=== PATIENT | female | born 1985 | race Caucasian/White ===

== ENCOUNTER 2019-05-06 18:30 | Emergency (ER) | payer OTHER ==
[~2019-05-06] VITALS: Ht 157.5 cm; Wt 79.4 kg
[2019-05-06 18:40] VITALS: BP 156/87
[2019-05-06] MEDS ORDERED: IV NORMAL SALINE 1000ML BAG 1,000 ML IV ONE (19:00)
[2019-05-06 19:20] LABS: BARBITURATES NEG (NEG); BENZODIAZEPINES NEG (NEG); CANNABINOIDS NEG (NEG); COCAINE NEG (NEG); METHADONE NEG (NEG); OPIATES NEG (NEG); PHENCYCLIDINE NEG (NEG)
[2019-05-06 19:23] LABS: AMPHETAMINE/METHAMPHETAMINE NEG (NEG)
[2019-05-06 19:29] LABS: BASO # 0.1 x10^3/uL (0.0-0.2); BASO % 2 % (0-3); EOS # 0.2 x10^3/uL (0.0-0.7); EOS % 4 % (0-3); HEMATOCRIT 38.6 % (36.0-47.0); HEMOGLOBIN 13.3 g/dL (12.0-15.5); LYMPH # 1.3 x10^3/uL (1.0-4.8); LYMPH % 29 % (24-48); MEAN CORPUSCULAR HEMOGLOBIN 34 pg (25-35); MEAN CORPUSCULAR HGB CONC 34 g/dL (31-37); MEAN CORPUSCULAR VOLUME 99 fL (79-100); MONO # 0.4 x10^3/uL (0.0-1.1); MONO % 9 % (0-9); NEUT # 2.7 x10^3uL (1.8-7.7); NEUT % 56 % (31-73); PLATELET COUNT 250 x10^3/uL (140-400); RED BLOOD COUNT 3.91 x10^6/uL (3.50-5.40); RED CELL DISTRIBUTION WIDTH 12.4 % (11.5-14.5); WHITE BLOOD COUNT 4.7 x10^3/uL (4.0-11.0)
[2019-05-06] MEDS ORDERED: KETOROLAC 30 MG/ML VIAL. IV ONE (19:30)
[2019-05-06] MEDS ORDERED: diphenhydrAMINE HCL 25 MG CAPSULE PO ONE (19:30)
[2019-05-06] MEDS ORDERED: PROCHLORPERAZINE 10 MG/2 ML VIAL. IV ONE (19:30)
[2019-05-06] MEDS ORDERED: methylPREDNISolone SOD SUCC PF 125 MG/2 ML VIAL. IV ONE (19:30)
[2019-05-06 19:39] LABS: CALCIUM 8.9 mg/dL (8.5-10.1); CREATININE 0.8 mg/dL (0.6-1.0); GFR 83.1; POTASSIUM 3.5 mmol/L (3.5-5.1)
[2019-05-06 19:45] LABS: ALBUMIN 4.3 g/dL (3.4-5.0); ALBUMIN/GLOBULIN RATIO 1.3 (1.0-1.7); TOTAL BILIRUBIN 0.4 mg/dL (0.2-1.0); TOTAL PROTEIN 7.5 g/dL (6.4-8.2)
--- NOTE | 2019-05-06 19:59 | PHYS DOC ---
Past Medical History Past Medical History: Anxiety, Hypertension (KALPESH NAPIER APRN) Past Surgical History: No Surgical History (KALPESH NAPIER APRN) Alcohol Use: None Drug Use: None (KALPESH NAPIER APRN) Adult General Chief Complaint Chief Complaint: HEADACHE HPI HPI Patient is a 34 year old female with history of hypertension, anxiety, smoking, migraine headaches who presents to the ED today complaining of a 7 out of 10 frontal migraine headache described as throbbing and intermittent since as they. Patient is also complaining of photosensitivity and nausea. Denies any vomiting. She states she feels her heart is racing. Denies any drug use. She states she is a smoker. She states she has tried Imitrex from a family member with some relief of her headache. (KALPESH NAPIER APRN) Review of Systems Review of Systems Constitutional: Denies fever or chills [] Eyes: Denies change in visual acuity, redness, or eye pain [] HENT: Denies nasal congestion or sore throat [] Respiratory: Denies cough or shortness of breath [] Cardiovascular: Reports her heart racing GI: Denies abdominal pain, nausea, vomiting, bloody stools or diarrhea [] : Denies dysuria or hematuria [] Musculoskeletal: Denies back pain or joint pain [] Integument: Denies rash or skin lesions [] Neurologic: Reports migraine headache, denies focal weakness or sensory changes [] All other systems were reviewed and found to be within normal limits, except as documented in this note. (KALPESH NAPIER APRN) Current Medications Current Medications Current Medications Medications (Trade) Dose Ordered Sig/Khai Start Time Stop Time Status Last Admin Dose Admin Diphenhydramine HCl (Benadryl) 25 mg 1X ONCE 05/06/19 19:30 05/06/19 19:31 DC 05/06/19 19:19 25 MG Ketorolac Tromethamine (Toradol 30mg Vial) 30 mg 1X ONCE 05/06/19 19:30 05/06/19 19:31 DC 05/06/19 19:18 30 MG Methylprednisolone Sodium Succinate (SOLU-Medrol 125MG VIAL) 125 mg 1X ONCE 05/06/19 19:30 05/06/19 19:31 DC 05/06/19 19:18 125 MG Prochlorperazine Edisylate (Compazine) 10 mg 1X ONCE 05/06/19 19:30 05/06/19 19:31 DC 05/06/19 19:18 10 MG Sodium Chloride 1,000 ml @ 1,000 mls/hr 1X ONCE 05/06/19 19:00 05/06/19 19:59 DC 05/06/19 19:19 1,000 MLS/HR (JAIMIE WEBSTER MD) Allergies Allergies Allergies Coded Allergies Type Severity Reaction Last Updated Verified No Known Drug Allergies 05/06/19 No (JAIMIE WEBSTER MD) Physical Exam Physical Exam Constitutional: Well developed, well nourished, no acute distress, non-toxic appearance. [] HENT: Normocephalic, atraumatic, bilateral external ears normal, oropharynx nabila st, no oral exudates, nose normal. [] Eyes: PERRLA, EOMI, conjunctiva normal, no discharge. [] Neck: Normal range of motion, no tenderness, supple, no stridor. [] Cardiovascular:Heart rate regular rhythm, no murmur [] Lungs & Thorax: Bilateral breath sounds clear to auscultation [] Abdomen: Bowel sounds normal, soft, no tenderness, no masses, no pulsatile masses. [] Skin: Warm, dry, no erythema, no rash. [] Back: No tenderness, no CVA tenderness. [] Extremities: No tenderness, no cyanosis, no clubbing, ROM intact, no edema. [] Neurologic: Alert and oriented X 3, normal motor function, normal sensory function, no focal deficits noted. Cranial nerves II through XII intact Psychologic: Affect normal, judgement normal, mood normal. [] (KALPESH NAPIER APRN) Current Patient Data Vital Signs Vital Signs Date Time Temp Pulse Resp B/P (MAP) Pulse Ox O2 Delivery O2 Flow Rate FiO2 05/06/19 18:40 98.6 113 16 156/87 (110) 97 Room Air 98.6 (JAIMIE WEBSTER MD) Lab Values Laboratory Tests Test 05/06/19 19:00 05/06/19 19:06 05/06/19 19:20 Urine Opiates Screen Neg (NEG) Urine Methadone Screen Neg (NEG) Urine Barbiturates Neg (NEG) Urine Phencyclidine Screen Neg (NEG) Urine Amphetamine/Methamphetamine Neg (NEG) Urine Benzodiazepines Screen Neg (NEG) Urine Cocaine Screen Neg (NEG) Urine Cannabinoids Screen Neg (NEG) Urine Ethyl Alcohol Pos (NEG) POC Urine HCG, Qualitative Hcg negative (Negative) White Blood Count 4.7 x10^3/uL (4.0-11.0) Red Blood Count 3.91 x10^6/uL (3.50-5.40) Hemoglobin 13.3 g/dL (12.0-15.5) Hematocrit 38.6 % (36.0-47.0) Mean Corpuscular Volume 99 fL (79-100) Mean Corpuscular Hemoglobin 34 pg (25-35) Mean Corpuscular Hemoglobin Concent 34 g/dL (31-37) Red Cell Distribution Width 12.4 % (11.5-14.5) Platelet Count 250 x10^3/uL (140-400) Neutrophils (%) (Auto) 56 % (31-73) Lymphocytes (%) (Auto) 29 % (24-48) Monocytes (%) (Auto) 9 % (0-9) Eosinophils (%) (Auto) 4 % (0-3) H Basophils (%) (Auto) 2 % (0-3) Neutrophils # (Auto) 2.7 x10^3uL (1.8-7.7) Lymphocytes # (Auto) 1.3 x10^3/uL (1.0-4.8) Monocytes # (Auto) 0.4 x10^3/uL (0.0-1.1) Eosinophils # (Auto) 0.2 x10^3/uL (0.0-0.7) Basophils # (Auto) 0.1 x10^3/uL (0.0-0.2) Sodium Level 136 mmol/L (136-145) Potassium Level 3.5 mmol/L (3.5-5.1) Chloride Level 98 mmol/L (98-107) Carbon Dioxide Level 25 mmol/L (21-32) Anion Gap 13 (6-14) Blood Urea Nitrogen 6 mg/dL (7-20) L Creatinine 0.8 mg/dL (0.6-1.0) Estimated GFR (Cockcroft-Gault) 83.1 BUN/Creatinine Ratio 8 (6-20) Glucose Level 126 mg/dL (70-99) H Calcium Level 8.9 mg/dL (8.5-10.1) Total Bilirubin 0.4 mg/dL (0.2-1.0) Aspartate Amino Transferase (AST) 42 U/L (15-37) H Alanine Aminotransferase (ALT) 53 U/L (14-59) Alkaline Phosphatase 53 U/L (46-116) Total Protein 7.5 g/dL (6.4-8.2) Albumin 4.3 g/dL (3.4-5.0) Albumin/Globulin Ratio 1.3 (1.0-1.7) Ethyl Alcohol Level 115 mg/dL (0-10) H Laboratory Tests 05/06/19 19:20 Laboratory Tests 05/06/19 19:20 (JAIMIE WEBSTER MD) EKG EKG [] (KALPESH NAPIER APRN) Radiology/Procedures Radiology/Procedures [] (KALPESH NAPIER APRN) Course & Med Decision Making Course & Med Decision Making Pertinent Labs and Imaging studies reviewed. (See chart for details) This is a 34-year-old female patient presenting to the ED today with a migraine headache since . Has history of migraine headaches. Also complaining of feeling her heart racing. On arrival to the ED heart rate was 113, blood pressure 156/87, O2 sats 97% on room air, respirations 16, temperature 98.6. Patient is a smoker, she was encouraged to consider smoking cessation. CBC, CMP-no acute findings. UDS noted for alcohol, alcohol level 115 Patient was given 1 L of IV fluid, Solu-Medrol, Toradol, Benadryl, Compazine. She informed the RN she is feeling better and wanted to be discharged. Her pupil was typed up and she left. (KALPESH NAPIER APRN) Course & Med Decision Making Staff Physician Addendum: I was working in the ER during the course of this patient's visit. I was available for consultation as needed, but I was not directly involved in the care of this patient. (JAIMIE WEBSTER MD) Dragon Disclaimer Dragon Disclaimer This electronic medical record was generated, in whole or in part, using a voice recognition dictation system. (KALPESH NAPIER APRN) Departure Departure Impression: Primary Impression: Migraine headache Additional Impressions: Alcohol use Smoking addiction Disposition: HOME, SELF-CARE Condition: STABLE Referrals: NO PCP (PCP) MARIAA SHAH MD follow up in 1 week Patient Instructions: Migraine Headache Additional Instructions: You were evaluated for migraine headache. Please follow-up with your primary care doctor. Come back to the ED at any point symptoms worsen. Problem Qualifiers Primary Impression: Migraine headache Migraine type: without aura Status migrainosus presence: without status migrainosus Intractability: not intractable Qualified Codes: G43.009 - Migraine without aura, not intractable, without status migrainosus KALPESH NAPIER APRN May 06, 2019 19:59 JAIMIE WEBSTER MD May 07, 2019 05:00
== END 2019-05-06 20:05 | disposition home or self-care (01) ==
LOC: ER 18:30
DX: G43.009 Migraine without aura, not intractable, without status migrainosus (principal); F41.9 Anxiety disorder, unspecified; I10 Essential (primary) hypertension; F17.200 Nicotine dependence, unspecified, uncomplicated; R00.0 Tachycardia, unspecified
CPT/HCPCS: 36415; 80053; 80307; 81025; 85025; 96374; 96375; 99284; G0480; J0780; J1885; J2930; J7030; Q0163